=== PATIENT | male | born 1995 | race Caucasian/White ===

== ENCOUNTER 2017-05-16 17:31 | Emergency (ER) | payer BC ==
[2017-05-16 18:16] VITALS: BP 133/58
--- NOTE | 2017-05-16 18:29 | UC ---
Throat Pain/Nasal Gigi HPI - HPI Summary HPI Summary: Sore throat and bilateral ear aches for 1 week - History of Current Complaint Chief Complaint: UCRespiratory Stated Complaint: SORE THROAT Time Seen by Provider: 05/16/17 18:21 Hx Obtained From: Patient Onset/Duration: Gradual Onset, Lasting Weeks - 1 Severity: Moderate Cough: None Associated Signs & Symptoms: Positive: Negative - Allergies/Home Medications Allergies/Adverse Reactions: Allergies Allergy/AdvReac Type Severity Reaction Status Date / Time No Known Allergies Allergy Verified 05/22/17 09:45 PMH/Surg Hx/FS Hx/Imm Hx Previously Healthy: Yes - Surgical History Surgical History: None - Family History Known Family History: Positive: None - Social History Occupation: Student Lives: With Family Alcohol Use: None Substance Use Type: None Substance Use Comment - Amount & Last Used: OCCASIONALLY Smoking Status (MU): Never Smoked Tobacco - Immunization History Most Recent Influenza Vaccination: 1-2 Years Ago Most Recent Pneumonia Vaccination: Never Vaccination Up to Date: Yes Review of Systems Constitutional: Negative Skin: Negative Eyes: Negative ENT: Sore Throat, Ear Ache Respiratory: Negative Cardiovascular: Negative Gastrointestinal: Negative Genitourinary: Negative Motor: Negative Neurovascular: Negative Musculoskeletal: Negative Neurological: Negative Psychological: Negative Is Patient Immunocompromised?: No All Other Systems Reviewed And Are Negative: Yes Physical Exam Triage Information Reviewed: Yes Appearance: Well-Appearing, No Pain Distress, Well-Nourished Vital Signs: Initial Vital Signs Temp 98 F 05/16/17 18:14 Pulse 68 05/16/17 18:14 Resp 16 05/16/17 18:14 BP 133/58 05/16/17 18:14 Pulse Ox 100 05/16/17 18:14 Vital Signs Reviewed: Yes Eye Exam: Normal Eyes: Positive: Conjunctiva Clear ENT Exam: Normal ENT: Positive: Normal ENT inspection, Hearing grossly normal, Pharynx normal, TMs normal, Uvula midline. Negative: Nasal congestion, Nasal drainage, Tonsillar swelling, Tonsillar exudate, Trismus, Muffled voice, Hoarse voice, Sinus tenderness Dental Exam: Normal Neck exam: Normal Neck: Positive: Supple, Nontender, No Lymphadenopathy Respiratory Exam: Normal Respiratory: Positive: Chest non-tender, Lungs clear, Normal breath sounds, No respiratory distress, No accessory muscle use Cardiovascular Exam: Normal Cardiovascular: Positive: RRR, No Murmur, Pulses Normal, Brisk Capillary Refill Musculoskeletal Exam: Normal Musculoskeletal: Positive: Strength Intact, ROM Intact, No Edema Neurological Exam: Normal Neurological: Positive: Alert, Muscle Tone Normal Psychological Exam: Normal Skin Exam: Normal Diagnostics - Laboratory ABG Interpretation: RST (-) Throat Pain/Nasal Course/Dx - Course Assessment/Plan: otc treatments for symptom managment , tylenol, ibupofen follow with pcp prn - Differential Dx/Diagnosis Provider Diagnoses: Viral Pharyngitis Discharge - Discharge Plan Condition: Stable Disposition: HOME Patient Education Materials: Pharyngitis (ED), Viral Syndrome (ED) Referrals: Brandon Carvalho MD [Primary Care Provider] - If Needed
== END 2017-05-16 19:00 | disposition home or self-care (01) ==
LOC: UCEAST 17:31
DX: J02.9 Acute pharyngitis, unspecified (principal); H92.03 Otalgia, bilateral
CPT/HCPCS: 87651; 99211; G0463

== ENCOUNTER 2017-11-15 08:07 | Emergency (ER) | payer BC ==
[2017-11-15 08:17] VITALS: BP 142/69
--- NOTE | 2017-11-15 08:50 | UC ---
Eye Complaint HPI - HPI Summary HPI Summary: c/o several days with cold like symptoms with nasal discharge, sore throat and malaise, yesterday noticed redness in left eye with yellow discharge this morning. - History of Current Complaint Chief Complaint: UCEye Stated Complaint: EYE IRRITATION Time Seen by Provider: 11/15/17 08:30 Hx Obtained From: Patient Onset/Duration: Sudden Onset, Lasting Days Timing: Constant Severity Initially: Mild Severity Currently: Mild Pain Intensity: 3 Location of Injury: Conjunctiva Character: Dull Aggravating Factor(s): Nothing Alleviating Factor(s): Nothing Associated Signs And Symptoms: Positive: Drainage (Purulent) - Risk Factors Penetrating Injury Risk Factor: Negative Globe Rupture Risk Factors: Negative Acute Glaucoma Risk Factors: Negative Optic Artery Occlusion Risk Factors: Negative - Allergies/Home Medications Allergies/Adverse Reactions: Allergies Allergy/AdvReac Type Severity Reaction Status Date / Time No Known Allergies Allergy Verified 11/15/17 08:17 PMH/Surg Hx/FS Hx/Imm Hx Previously Healthy: Yes - Surgical History Surgical History: None Surgery Procedure, Year, and Place: denies - Social History Alcohol Use: Weekly Alcohol Amount: 2/wk Substance Use Type: None Substance Use Comment - Amount & Last Used: OCCASIONALLY Smoking Status (MU): Never Smoked Tobacco Have You Smoked in the Last Year: No - Immunization History Most Recent Influenza Vaccination: 1-2 Years Ago Most Recent Tetanus Shot: UTD Most Recent Pneumonia Vaccination: Never Vaccination Up to Date: Yes Review of Systems Constitutional: Negative Eyes: Drainage, Eye Redness All Other Systems Reviewed And Are Negative: Yes Physical Exam Triage Information Reviewed: Yes Appearance: Well-Appearing, No Pain Distress, Well-Nourished Vital Signs: Initial Vital Signs Temp 97.6 F 11/15/17 08:13 Pulse 81 11/15/17 08:13 Resp 18 11/15/17 08:13 BP 142/69 11/15/17 08:13 Pulse Ox 98 11/15/17 08:13 Eyes: Positive: Conjunctiva Inflamed ENT: Positive: Hearing grossly normal, Pharyngeal erythema, TMs normal Dental Exam: Normal Neck: Positive: Supple, Nontender Respiratory: Positive: Lungs clear, No respiratory distress Cardiovascular: Positive: RRR, No Murmur, Pulses Normal, Brisk Capillary Refill Eye Complaint Course/Dx - Course Course Of Treatment: start maxitrol eye drops as prescribed. NS eye cleansing - Differential Dx/Diagnosis Provider Diagnoses: conjunctivitis Discharge - Sign-Out/Discharge Documenting (check all that apply): Discharge/Admit/Transfer - Discharge Plan Condition: Good Disposition: HOME Prescriptions: Neomycin/Polymyxin B/Dexametha [Maxitrol] 1 ailyn OP TID 5 Days #1 ailyn Patient Education Materials: Conjunctivitis (ED), Antibiotic/Anti-inflammatory Combinations (Into the eye) Referrals: Brandon Carvalho MD [Primary Care Provider] - - Billing Disposition and Condition Condition: GOOD Disposition: HOME
== END 2017-11-15 08:45 | disposition home or self-care (01) ==
LOC: UCEAST 08:07
DX: H10.32 Unspecified acute conjunctivitis, left eye (principal); J34.89 Other specified disorders of nose and nasal sinuses; J02.9 Acute pharyngitis, unspecified; R53.81 Other malaise
CPT/HCPCS: 99212; G0463

== ENCOUNTER → 2018-11-05 18:26 | Emergency (ER) | payer SELFPAY | END | disposition home or self-care (01) | LOC: UCEAST 18:26 | DX: Z02.5 Encounter for examination for participation in sport (principal) ==

== ENCOUNTER 2018-11-26 07:31 | Emergency (ER) | payer BC ==
--- NOTE | 2018-11-26 08:39 | UC ---
Respiratory Complaint HPI - HPI Summary HPI Summary: 2 WEEKS OF PRODUCTIVE COUGH THAT IS WORSE IN THE MORNING. ALSO HAS SOME NASAL AND CHEST CONGESTION. HAS SOME PLEURITIC PAIN. DENIES FEVER, EAR PAIN, NAUSEA/ VOMITING. NO SHORTNESS OF BREATH OR WHEEZE. 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 - History of Current Complaint Chief Complaint: UCRespiratory Stated Complaint: URI Time Seen by Provider: 11/26/18 08:26 Hx Obtained From: Patient Onset/Duration: Gradual Onset, Lasting Weeks, Still Present Timing: Constant Severity Initially: Moderate Severity Currently: Moderate Pain Intensity: 0 Pain Scale Used: 0-10 Numeric Character: Cough: Productive Aggravating Factors: Recumbent Position Alleviating Factors: Nothing Associated Signs And Symptoms: Positive: Nasal Congestion. Negative: Dyspnea, Fever, Chills, Wheezing, Hemoptysis - Allergies/Home Medications Allergies/Adverse Reactions: Allergies Allergy/AdvReac Type Severity Reaction Status Date / Time No Known Allergies Allergy Verified 11/26/18 07:41 PMH/Surg Hx/FS Hx/Imm Hx Previously Healthy: Yes - Surgical History Surgical History: None Surgery Procedure, Year, and Place: denies - Family History Known Family History: Negative: Cardiac Disease, Hypertension - Social History Alcohol Use: Weekly Alcohol Amount: 2/wk Substance Use Type: Marijuana Substance Use Comment - Amount & Last Used: occasional Smoking Status (MU): Never Smoked Tobacco Have You Smoked in the Last Year: No - Immunization History Most Recent Influenza Vaccination: 1-2 Years Ago Most Recent Tetanus Shot: UTD Most Recent Pneumonia Vaccination: Never Vaccination Up to Date: Yes Review of Systems All Other Systems Reviewed And Are Negative: Yes Constitutional: Positive: Negative ENT: Positive: Negative Respiratory: Positive: Cough, Other - pleuritic pain Cardiovascular: Positive: Negative Gastrointestinal: Positive: Negative Physical Exam Triage Information Reviewed: Yes Appearance: Well-Appearing, No Pain Distress, Well-Nourished Vital Signs: Initial Vital Signs Temp 97.6 F 11/26/18 07:37 Pulse 64 11/26/18 07:37 Resp 16 11/26/18 07:37 BP 121/59 11/26/18 07:37 Pulse Ox 100 11/26/18 07:37 Vital Signs Reviewed: Yes Eyes: Positive: Conjunctiva Clear ENT: Positive: Hearing grossly normal, TMs normal, Other - few Neck: Positive: Supple, Nontender, No Lymphadenopathy Respiratory Exam: Normal Cardiovascular: Positive: RRR - with occasional ectopic beat, Pulses Normal Abdomen Description: Positive: Soft Musculoskeletal: Positive: No Edema Neurological: Positive: Alert Psychological: Positive: Age Appropriate Behavior Skin: Negative: Rashes Diagnostics - Radiology CXR Radiology Interpretation Completed By: Radiologist Summary of Radiographic Findings: 1. Elevated lung volumes may reflect obstructive lung disease or simply exuberant. inspiratory effort for examination. 2. No acute cardiopulmonary process evident. Respiratory Course/Dx - Course Course Of Treatment: CHEST X-RAY SHOWS ELEVATED LUNG VOLUMES BUT THIS MAY JUST BE DUE TO STRONG INSPIRATORY EFFORT. NO ACUTE PROCESS SEEN. 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 HIS SYMPTOMS HAVE BEEN STABLE FOR A COUPLE OF WEEKS WHICH SUPPORTS AN INFLAMMATORY/ALLERGIC ETIOLOGY. NO INDICATION FOR ANTIBIOTICS AT PRESENT. WILL COVER WITH PREDNISONE, ALBUTEROL, FLONASE AND OTC ANTIHISTAMINE. HAVE ADVISED FOLLOW-UP IF HE IS NOT IMPROVING WITH THIS TREATMENT. - Differential Dx/Diagnosis Provider Diagnosis: Acute bronchitis Discharge - Sign-Out/Discharge Documenting (check all that apply): Patient Departure All imaging exams completed and their final reports reviewed: Yes - Discharge Plan Condition: Stable Disposition: HOME Prescriptions: Albuterol HFA INHALER* [Ventolin HFA Inhaler*] 2 puff INH Q4H PRN #1 mdi PRN Reason: Shortness Of Breath Fluticasone NASAL SPRAY 50MCG* [Flonase NASAL SPRAY 50MCG*] 2 spray BOTH NARES DAILY #1 btl predniSONE TAB* [Deltasone TAB*] 50 mg PO DAILY #5 tab Patient Education Materials: Acute Bronchitis (ED) Referrals: No Primary Care Phys,NOPCP [Primary Care Provider] - Additional Instructions: YOUR SYMPTOMS ARE LIKELY VIRALLY/ALLERGICALLY MEDIATED. NO INDICATION FOR ANTIBIOTICS AT PRESENT. REST, HYDRATE, OTC MEDS NEEDED. WILL TREAT WITH PREDNISONE AND ALBUTEROL INHALER TO HELP WITH AIRWAY INFLAMMATION. FLONASE NASAL SPRAY FOR CONGESTION. TAKE AN OTC ANTIHISTAMINE SUCH CLARITIN OR ZYRTEC DAILY. SEEK FOLLOW-UP IF YOU ARE NOT IMPROVING WITH THIS TREATMENT. CALL THE NUMBER BELOW FOR ASSISTANCE IN ESTABLISHING WITH A PCP An additional resource available to assist in finding the appropriate physician for your health care needs is the [facility] ([facility]). You may contact them by calling [phone]. - Billing Disposition and Condition Condition: STABLE Disposition: Home
[2018-11-26 09:41] VITALS: BP 146/72
== END 2018-11-26 10:04 | disposition home or self-care (01) ==
LOC: UCEAST 07:31
DX: J20.9 Acute bronchitis, unspecified (principal); R09.81 Nasal congestion
CPT/HCPCS: 71046; 99212; G0463

== ENCOUNTER 2018-12-16 16:54 | Emergency (ER) | payer BC ==
[2018-12-16 17:15] VITALS: BP 142/68
[2018-12-16] MEDS ORDERED: Ibuprofen TAB* 600 MG PO ONE (17:24)
--- NOTE | 2018-12-16 17:24 | UC ---
Headache HPI - HPI Summary HPI Summary: 23-year-old male with a chief complaint of a frontal headache for 6 days. Started gradually 4 days ago. It's about an 8 out of 10. The pain does common go. It is pulsating at times. No history of migraines. His father has a history of migraines. Mild photophobia. No blurred vision no weakness no numbness no difficulty with speech. He has tried some [id number]-[id number] sinus medication which does help some with the symptoms. He is not using any nasal sprays. Denies any upper respiratory tract infection symptoms. No fevers or chills no neck pain no bodyaches. He has been able to play basketball with the headache and the headache went away while he was playing basketball. Most mornings is woke up with the headache. This morning he woke up there was no headache. - History Of Current Complaint Chief Complaint: UCHeadache Stated Complaint: HEADACHE Time Seen by Provider: 12/16/18 17:11 Pain Intensity: 9 - Allergies/Home Medications Allergies/Adverse Reactions: Allergies Allergy/AdvReac Type Severity Reaction Status Date / Time No Known Allergies Allergy Verified 12/16/18 17:16 PMH/Surg Hx/FS Hx/Imm Hx Previously Healthy: Yes - Surgical History Surgical History: None Surgery Procedure, Year, and Place: denies - Family History Known Family History: Positive: Other - FATHER HX MIGRAINES Negative: Cardiac Disease, Hypertension - Social History Alcohol Use: Weekly Alcohol Amount: 2/wk Substance Use Type: Marijuana Substance Use Comment - Amount & Last Used: occasional Smoking Status (MU): Never Smoked Tobacco Have You Smoked in the Last Year: No - Immunization History Most Recent Influenza Vaccination: 1-2 Years Ago Most Recent Tetanus Shot: UTD Most Recent Pneumonia Vaccination: Never Vaccination Up to Date: Yes Review of Systems All Other Systems Reviewed And Are Negative: Yes Constitutional: Positive: Negative. Negative: Fever Skin: Positive: Negative Eyes: Positive: Photophobia. Negative: Blurred Vision ENT: Positive: Negative Respiratory: Positive: Negative Cardiovascular: Positive: Negative Gastrointestinal: Positive: Negative. Negative: Nausea Motor: Positive: Negative Neurovascular: Positive: Negative Musculoskeletal: Positive: Negative Neurological: Positive: Negative Psychological: Positive: Negative Is Patient Immunocompromised?: No Physical Exam Triage Information Reviewed: Yes Appearance: Well-Appearing, Well-Nourished, Pain Distress - MILD Vital Signs: Initial Vital Signs Temp 99 F 12/16/18 17:12 Pulse 72 12/16/18 17:12 Resp 16 12/16/18 17:12 BP 142/68 12/16/18 17:12 Pulse Ox 100 12/16/18 17:12 Vital Signs Reviewed: Yes Eyes: Positive: Conjunctiva Clear, Other: - PERRLA/EOMI ENT: Negative: Nasal congestion Neck: Positive: Supple Respiratory: Positive: Lungs clear, Normal breath sounds, No respiratory distress Cardiovascular: Positive: RRR Musculoskeletal Exam: Normal Musculoskeletal: Positive: Strength Intact, ROM Intact Neurological Exam: Normal Neurological: Positive: Alert, Muscle Tone Normal Psychological Exam: Normal Psychological: Positive: Age Appropriate Behavior Skin Exam: Normal Headache Course/Dx - Course Course Of Treatment: Patient Name: ALEM MEDINA Medical Record#: [id number] Ordering Physician: Toni Winston MD Acct.#: [id number] : 1995 Age: 23 Sex: M Location: [facility] Exam Date: 12/16/181723 ADM Status: REG ER Order Information: CT BRAIN WO Accession Number: [id number] CPT: 31627 INDICATION: Frontal headache x1 week COMPARISON: None. TECHNIQUE: Contiguous axial sections of the brain were obtained from the skull base to the vertex without contrast. FINDINGS: The ventricles, cisterns and sulci are within normal limits. The singh-white matter differentiation is adequately maintained and there is no sulcal effacement. No significant focal abnormality or mass effect is present. There is no evidence for intracranial hemorrhage. No significant focal osseous abnormality is present. There is near complete opacification of the right frontal sinuses and moderate mucosal thickening of the left frontal sinuses. There is moderate mucosal thickening of the bilateral anterior ethmoid air cells, more severely affecting the left than the right. There is mild mucosal thickening of the right maxillary sinus. The remaining visualized paranasal sinuses are adequately aerated. The mastoid air cells are well aerated bilaterally. IMPRESSION: Paranasal sinus mucosal disease as described above in this otherwise nonacute head CT. <Electronically signed by Trevor Liao MD in [facility]> 12/16/[address] report with the patient. There is extensive the sinus findings. Plan is to treat with Augmentin 875 mg by mouth twice a day for 10 days. Prefer refill just in case he needed a longer course. Also wrote a prescription for Flonase. Discussed using saline nasal spray. Discussed avoiding Afrin. Follow-up with primary care doctor get reevaluated sooner if worse or any questions or concerns. - Differential Dx/Diagnosis Provider Diagnosis: Headache, Sinusitis Discharge - Sign-Out/Discharge Documenting (check all that apply): Patient Departure All imaging exams completed and their final reports reviewed: Yes - Discharge Plan Condition: Stable Disposition: HOME Prescriptions: Amoxicillin/Clavulanate TAB* [Augmentin TAB 875*] 875 mg PO BID #20 tab Fluticasone NASAL SPRAY 50MCG* [Flonase NASAL SPRAY 50MCG*] 2 spray BOTH NARES DAILY #1 btl Patient Education Materials: Acute Headache (ED), Sinusitis (ED) Referrals: [facility] [Outside] Additional Instructions: FOLLOW UP WITH YOUR DOCTOR IF NOT COMPLETELY IMPROVED. GET RECHECKED SOONER IF YOUR CONDITION WORSENS; PAIN, WEAKNESS, NUMBNESS, FEVER , YOU FEEL ILL, CHANGE IN VISION OR SPEECH OR ANY QUESTIONS OR CONCERNS. - Billing Disposition and Condition Condition: STABLE Disposition: Home
== END 2018-12-16 18:13 | disposition home or self-care (01) ==
LOC: UCEAST 16:54
DX: R51 Headache (principal); J32.9 Chronic sinusitis, unspecified
CPT/HCPCS: 70450; 99212; A9270-GY; G0463

== ENCOUNTER 2019-07-20 15:13 | Emergency (ER) | payer BC ==
[2019-07-20 15:22] VITALS: BP 143/69
--- NOTE | 2019-07-20 15:36 | UC ---
Throat Pain/Nasal Gigi HPI - HPI Summary HPI Summary: 23yo with 4 week history of cough, without fever, shortness of breath or chest pain. Over the past week, has had increaed frontal headache and right ear discomfort with decreased hearing. Recently started on citaloprim (kalina week ago) for depression with side effect of nausea. - History of Current Complaint Chief Complaint: UCGeneralIllness Stated Complaint: RESP COMPLAINT Time Seen by Provider: 07/20/19 15:26 Hx Obtained From: Patient Onset/Duration: Gradual Onset Pain Intensity: 4 Cough: Nonproductive Associated Signs & Symptoms: Positive: Sinus Discomfort, Nasal Discharge. Negative: Dysphagia, Wheezing, Fever, Vomiting - Epiglottits Risk Factors Epiglottis Risk Factors: Negative - Allergies/Home Medications Allergies/Adverse Reactions: Allergies Allergy/AdvReac Type Severity Reaction Status Date / Time No Known Allergies Allergy Verified 07/20/19 15:23 Home Medications: Home Medications Citalopram TAB* [CeleXA TAB*] 20 mg PO BEDTIME 07/20/19 [History Confirmed 07/20] Ibuprofen 400 mg PO DAILY WITH MEAL 07/20/19 [History Confirmed 07/20/19] PMH/Surg Hx/FS Hx/Imm Hx Previously Healthy: Yes Psychological History: Depression - Surgical History Surgical History: None Surgery Procedure, Year, and Place: denies - Family History Known Family History: Positive: Other - FATHER HX MIGRAINES Negative: Cardiac Disease, Hypertension - Social History Occupation: Employed Part-time, Student Lives: With Family Alcohol Use: Occasionally Alcohol Amount: 2/wk Substance Use Type: None Substance Use Comment - Amount & Last Used: occasional Smoking Status (MU): Never Smoked Tobacco Have You Smoked in the Last Year: No - Immunization History Most Recent Influenza Vaccination: 1-2 Years Ago Most Recent Tetanus Shot: UTD Most Recent Pneumonia Vaccination: Never Vaccination Up to Date: Yes Review of Systems All Other Systems Reviewed And Are Negative: Yes Constitutional: Positive: Fatigue Skin: Positive: Negative Eyes: Positive: Negative ENT: Positive: Ear Ache, Sinus Congestion Respiratory: Positive: Cough. Negative: Shortness Of Breath Cardiovascular: Negative: Palpitations, Chest Pain Gastrointestinal: Positive: Nausea. Negative: Abdominal Pain, Vomiting, Diarrhea Genitourinary: Positive: Negative Motor: Positive: Negative Neurovascular: Positive: Negative Musculoskeletal: Positive: Negative Neurological: Positive: Negative Psychological: Positive: Negative Is Patient Immunocompromised?: No Physical Exam Triage Information Reviewed: Yes Appearance: Well-Appearing, No Pain Distress Vital Signs: Initial Vital Signs Temp 98.4 F 07/20/19 15:18 Pulse 52 07/20/19 15:18 Resp 16 07/20/19 15:18 BP 143/69 07/20/19 15:18 Pulse Ox 100 07/20/19 15:18 Eyes: Positive: Conjunctiva Clear ENT: Positive: Pharyngeal erythema, TM bulging - right, TM dull, TM red - right. Negative: Tonsillar swelling Neck: Positive: Supple, Nontender, No Lymphadenopathy Respiratory: Positive: Lungs clear, Normal breath sounds, No respiratory distress Cardiovascular: Positive: RRR, No Murmur Musculoskeletal Exam: Normal Neurological Exam: Normal Psychological Exam: Normal Skin Exam: Normal Throat Pain/Nasal Course/Dx - Course Course Of Treatment: augmentin for treatment of sinusitis. Follow up if cough is persisting after 2 weeks. - Differential Dx/Diagnosis Differential Diagnosis/HQI/PQRI: Laryngitis, Pharyngitis, Sinusitis, Tonsillitis Provider Diagnosis: Sinusitis, Right otitis media Discharge ED - Sign-Out/Discharge Documenting (check all that apply): Patient Departure All imaging exams completed and their final reports reviewed: No Studies - Discharge Plan Condition: Stable Disposition: HOME Prescriptions: Amoxicillin/Clavulanate TAB* [Augmentin TAB 875*] 875 mg PO BID #20 tab Patient Education Materials: Sinusitis (ED), Ear Infection (ED) Referrals: No Primary Care Phys,NOPCP [Primary Care Provider] - Additional Instructions: Take the full course of augmentin for treatment of sinus and ear infection. Follow up if you have persistent cough 2 weeks following treatment with antibiotics. Use ibuprofen 600mg up to 3 times per day as needed for control of pain. - Billing Disposition and Condition Condition: STABLE Disposition: Home
== END 2019-07-20 15:33 | disposition home or self-care (01) ==
LOC: UCEAST 15:13
DX: J32.9 Chronic sinusitis, unspecified (principal); H66.91 Otitis media, unspecified, right ear; R05 Cough; R11.0 Nausea
CPT/HCPCS: 99212; G0463